=== PATIENT | female | born 1980 | race American Indian/Alaskan Native ===

== ENCOUNTER 2018-03-31 00:55 | Emergency (ER) | payer OTHER ==
[2018-03-31 01:42] LABS: Basophils # (Auto) 0.1 K/mm3 (0.0-0.1); Basophils % (Auto) 0.9 % (0.0-1.8); Eosinophils # (Auto) 0.2 K/mm3 (0.0-0.4); Eosinophils % (Auto) 1.7 % (0.0-4.3); Hematocrit 39.9 % (30.3-42.9); Hemoglobin 13.1 gm/dl (10.1-14.3); Lymphocytes # (Auto) 3.3 K/mm3 (1.2-5.4); Lymphocytes % (Auto) 37.3 % (13.4-35.0); Mean Corpuscular HGB Conc 33 % (30-34); Mean Corpuscular Volume 93 fl (79-97); Monocytes # (Auto) 0.5 K/mm3 (0.0-0.8); Monocytes % (Auto) 5.6 % (0.0-7.3); Platelet Count 339 K/mm3 (140-440); Red Blood Count 4.29 M/mm3 (3.65-5.03); Red Cell Distribution Width 14.3 % (13.2-15.2)
[2018-03-31 02:04] LABS: BUN/Creatinine Ratio 13; Blood Urea Nitrogen 9 mg/dL (7-17); Calcium 8.6 mg/dL (8.4-10.2); Hemolysis Index 9
--- NOTE | 2018-03-31 03:02 | XRay Report ---
FINAL REPORT PROCEDURE: XR CHEST ROUTINE 2V TECHNIQUE: PA and lateral chest radiographs were obtained. CPT 07576 HISTORY: CP/SOB COMPARISON: No prior studies are available for comparison. FINDINGS: Heart: Normal. Mediastinum/Vessels: Normal. Lungs/Pleural space: Normal. Bony thorax: No acute osseous abnormality. Other: IMPRESSION: Normal examination.
[2018-03-31] MEDS ORDERED: ALUM-MAG HYDROX-SIMETH 200-200-20MG/5ML PO ONE (04:17)
[2018-03-31] MEDS ORDERED: TORADOL IM ONE (04:17)
[2018-03-31] MEDS ORDERED: CARAFATE PO ONE (04:17)
[2018-03-31] MEDS ORDERED: PEPCID PO ONE (04:17)
[2018-03-31 04:22] LABS: INR 0.93 (0.87-1.13)
--- NOTE | 2018-03-31 05:37 | Emergency Department Report ---
ED Chest Pain HPI - General Chief Complaint: Chest Pain Stated Complaint: CHEST/ABD PAIN Time Seen by Provider: 03/31/18 04:06 Source: patient Mode of arrival: Ambulatory Limitations: No Limitations - History of Present Illness Initial Comments: This is a 37-year-old female. The patient is not known to this provider previously. She has no current primary care doctor, and denies chronic medical conditions. She reports that she is not , and denies oral contraceptive use. The patient presents to the emergency room with multiple complaints. Her first complaint is chest wall pain. The pain is present intermittently for the past 2 months. It does not radiate to the back, arms or neck. It occasionally involves her shoulders. It has been intermittent for 2 months. The episode that she is experiencing today has been intermittent for the past 36 hours. There is no shortness of breath, vomiting, diaphoresis. There is no posterior leg pain, and no DVT, pulmonary embolus risk factors. She did complain of subjective lower extremity swelling, present for months, neither new, worsening or different. She has a secondary complaints of abdominal pain. Abdominal pain is crampy and in the lower quadrants, present for 4 months. It feels like cramping in nature, and "gas pressure." She denies dysuria, vomiting, reports her last bowel movement was a few days ago, and denies vaginal discharge and feminine discharge. She has no family history of DVT or pulmonary embolus that she is aware of. There is no family history of cardiac disease that she is aware of. MD Complaint: chest pain, other -: Gradual, month(s) Pain Location: other (as per history of present illness) Pain Radiation: other (occasionally to shoulders) Severity scale (0 -10): 5 Quality: aching Consistency: intermittent Improves With: other Worsens With: other Context: other Aspirin use within the Past 7 Days: (0) No - Related Data Previous Rx's Medication Instructions Recorded Last Taken Type Acetaminophen [Tylenol Arthritis] 650 mg PO Q6HR PRN #30 tablet.er 03/31/18 Unknown Rx Ibuprofen [Motrin] 600 mg PO Q8H PRN #30 tablet 03/31/18 Unknown Rx Allergies Allergy/AdvReac Type Severity Reaction Status Date / Time No Known Allergies Allergy Unverified 03/31/18 01:03 Heart Score - HEART Score History: Slightly suspicious EKG: Non-specific Age: < 45 Risk factors: No known risk factors Troponin: < normal limit HEART Score: 1 - Critical Actions Critical Actions: 0-3 pts:0.9-1.7%risk of adverse cardiac event.Candidate for discharge ED Review of Systems ROS: Stated complaint: CHEST/ABD PAIN Other details as noted in HPI Constitutional: denies: fever, malaise Eyes: denies: vision change ENT: denies: epistaxis Respiratory: denies: cough Cardiovascular: chest pain Gastrointestinal: abdominal pain, constipation. denies: vomiting Genitourinary: denies: dysuria Musculoskeletal: other (subjective lower extremity swelling). denies: back pain, arthralgia, myalgia Skin: denies: lesions Neurological: weakness. denies: headache Psychiatric: as per HPI, anxiety ED Past Medical Hx - Past Medical History Previous Medical History?: No - Surgical History Past Surgical History?: No - Social History Smoking Status: Former Smoker Substance Use Type: None - Medications Home Medications: Home Medications Medication Instructions Recorded Confirmed Last Taken Type Acetaminophen [Tylenol Arthritis] 650 mg PO Q6HR PRN #30 tablet.er 03/31/18 Unknown Rx Ibuprofen [Motrin] 600 mg PO Q8H PRN #30 tablet 03/31/18 Unknown Rx ED Physical Exam - General Limitations: No Limitations General appearance: alert, in no apparent distress, obese - Head Head exam: Present: atraumatic, normocephalic - Eye Eye exam: Present: normal appearance, EOMI. Absent: nystagmus - ENT ENT exam: Present: normal exam, normal orophraynx, mucous membranes moist, normal external ear exam - Neck Neck exam: Present: normal inspection, full ROM. Absent: tenderness, meningismus - Respiratory Respiratory exam: Present: normal lung sounds bilaterally, chest wall tenderness. Absent: respiratory distress, wheezes, rales, rhonchi, stridor - Cardiovascular Cardiovascular Exam: Present: regular rate, normal rhythm, normal heart sounds. Absent: bradycardia, tachycardia, irregular rhythm, systolic murmur, diastolic murmur, rubs, gallop - GI/Abdominal GI/Abdominal exam: Present: soft. Absent: distended, tenderness, guarding, rebound, rigid, pulsatile mass - Extremities Exam Extremities exam: Present: normal inspection, full ROM, other (2+ pulses noted in the bilateral upper, lower extremities. Compartments soft. No long bony tenderness. The pelvis is stable.). Absent: pedal edema, joint swelling, calf tenderness - Back Exam Back exam: Present: normal inspection, full ROM. Absent: tenderness, CVA tenderness (R), paraspinal tenderness, vertebral tenderness - Neurological Exam Neurological exam: Present: alert, oriented X3, CN II-XII intact, normal gait, other (Extraocular movements intact. Tongue midline. No facial droop. Facial sensation intact to light touch in the V1, V2, V3 distribution bilaterally. 5 and 5 strength in 4 extremities.. Sensation is intact to light touch in 4 extremities.). Absent: motor sensory deficit - Psychiatric Psychiatric exam: Present: normal affect, normal mood - Skin Skin exam: Present: warm, dry, intact, normal color. Absent: rash ED Course Vital Signs 03/31/18 03/31/18 03/31/18 01:00 04:05 04:31 Temperature 97.9 F 98.3 F Pulse Rate 80 67 68 Respiratory 16 17 19 Rate Blood Pressure 149/98 118/77 Blood Pressure 118/77 [Left] O2 Sat by Pulse 98 100 96 Oximetry 03/31/18 03/31/18 03/31/18 05:00 05:31 06:00 Temperature Pulse Rate 66 71 71 Respiratory 11 L 18 19 Rate Blood Pressure 124/71 123/77 109/68 Blood Pressure [Left] O2 Sat by Pulse 98 99 99 Oximetry - Reevaluation(s) Reevaluation #1: 03/31/18 05:40 Differential diagnosis, including without limited to: Costochondritis, pneumonia, acute coronary syndrome, constipation, urinary tract infection Assessment and plan: 37-year-old female with complaint of abdominal pain and reproducible chest wall pain. Chest wall pain: Reproducible, no pulmonary embolus or DVT risk factors, low risk by well's criteria, low risk by DESTINEE score, low risk by heart score, perc negative, not tachycardic, not hypoxic, EKG unchanged 2, troponin negative 2. We will discharge the patient with pain medication, and she can follow up with an outpatient primary care doctor or technical operator for her chest pain and abnormal EKG. Given that patient is having months of chest wall pain, she is at very low risk for major adverse cardiac event. Abdominal pain: Likely constipation. No abdominal tenderness, rebound or guarding. Urinalysis, urine test pending. This can be treated with supportive care, diet and lifestyle modifications. Based off of History, do not suspect urinary tract infection, and patient stated she is not . Patient endorses consuming one to 2 cups of water per day, at the most. Care was transferred to oncoming physician, Dr. Kingsley Ardon, to follow up on urinalysis and urine test, and if negative, not indicative for acute disease, discharged to follow-up. 04/02/18 19:46 DESTINEE score - Destinee Score Age > 65: (0) No Aspirin use within the Past 7 Days: (0) No 3 or more CAD Risk Factors: (0) No 2 or more Angina events in past 24 hrs: (0) No Known CAD with more than 50% Stenosis: (0) No Elevated Cardiac Markers: (0) No ST Deviation Greater than 0.5mm: (0) No DESTINEE Score: 0 ED Medical Decision Making - Lab Data Result diagrams: 03/31/18 01:22 03/31/18 01:22 Vital Signs 03/31/18 03/31/18 01:00 04:05 Temperature 97.9 F 98.3 F Pulse Rate 80 67 Respiratory 16 17 Rate Blood Pressure 149/98 Blood Pressure 118/77 [Left] O2 Sat by Pulse 98 100 Oximetry Lab Results 03/31/18 03/31/18 03/31/18 Range/Units 01:22 01:22 03:30 WBC 8.8 (4.5-11.0) K/mm3 RBC 4.29 (3.65-5.03) M/mm3 Hgb 13.1 (10.1-14.3) gm/dl Hct 39.9 (30.3-42.9) % MCV 93 (79-97) fl MCH 30 (28-32) pg MCHC 33 (30-34) % RDW 14.3 (13.2-15.2) % Plt Count 339 (140-440) K/mm3 Lymph % (Auto) 37.3 H (13.4-35.0) % [place] % (Auto) 5.6 (0.0-7.3) % Eos % (Auto) 1.7 (0.0-4.3) % Baso % (Auto) 0.9 (0.0-1.8) % Lymph # 3.3 (1.2-5.4) K/mm3 [place] # 0.5 (0.0-0.8) K/mm3 Eos # 0.2 (0.0-0.4) K/mm3 Baso # 0.1 (0.0-0.1) K/mm3 Seg Neutrophils % 54.5 (40.0-70.0) % Seg Neutrophils # 4.8 (1.8-7.7) K/mm3 PT 12.9 (12.2-14.9) Sec. INR 0.93 (0.87-1.13) Sodium 137 (137-145) mmol/L Potassium 4.0 (3.6-5.0) mmol/L Chloride 103.4 (98-107) mmol/L Carbon Dioxide 23 (22-30) mmol/L Anion Gap 15 mmol/L BUN 9 (7-17) mg/dL Creatinine 0.7 (0.7-1.2) mg/dL Estimated GFR > 60 ml/min BUN/Creatinine Ratio 13 % Glucose 100 (65-100) mg/dL Calcium 8.6 (8.4-10.2) mg/dL Troponin T < 0.010 (0.00-0.029) ng/mL Lipase (13-60) units/L 03/31/18 Range/Units 03:51 WBC (4.5-11.0) K/mm3 RBC (3.65-5.03) M/mm3 Hgb (10.1-14.3) gm/dl Hct (30.3-42.9) % MCV (79-97) fl MCH (28-32) pg MCHC (30-34) % RDW (13.2-15.2) % Plt Count (140-440) K/mm3 Lymph % (Auto) (13.4-35.0) % [place] % (Auto) (0.0-7.3) % Eos % (Auto) (0.0-4.3) % Baso % (Auto) (0.0-1.8) % Lymph # (1.2-5.4) K/mm3 [place] # (0.0-0.8) K/mm3 Eos # (0.0-0.4) K/mm3 Baso # (0.0-0.1) K/mm3 Seg Neutrophils % (40.0-70.0) % Seg Neutrophils # (1.8-7.7) K/mm3 PT (12.2-14.9) Sec. INR (0.87-1.13) Sodium (137-145) mmol/L Potassium (3.6-5.0) mmol/L Chloride (98-107) mmol/L Carbon Dioxide (22-30) mmol/L Anion Gap mmol/L BUN (7-17) mg/dL Creatinine (0.7-1.2) mg/dL Estimated GFR ml/min BUN/Creatinine Ratio % Glucose (65-100) mg/dL Calcium (8.4-10.2) mg/dL Troponin T < 0.010 (0.00-0.029) ng/mL Lipase 31 (13-60) units/L - EKG Data -: EKG Interpreted by Me EKG shows normal: sinus rhythm Rate: normal - EKG Data When compared to previous EKG there are: previous EKG unavailable 03/31/18 05:39 EKG #1 demonstrates sinus, 77 beats per minute, normal axis, normal intervals, poor R-wave progression, low voltage, abnormal EKG, not consistent with ST elevation myocardial infarction, EKG #2 appears to be unchanged. - Radiology Data Radiology results: report reviewed, image reviewed X-ray of the chest is negative for acute disease. Critical care attestation.: If time is entered above; I have spent that time in minutes in the direct care of this critically ill patient, excluding procedure time. ED Disposition Clinical Impression: Chest wall pain, Lower abdominal pain Disposition: - TO HOME OR SELFCARE Is pt being admited?: No Does the pt Need Aspirin: No Condition: Stable Instructions: Chest Pain (ED) Additional Instructions: Take the medications as needed/directed. Follow-up with the primary care doctor or technical operator within the next 10-14 days. Drink 6-8 cups of water per day, and eat plenty of fruits, fibers, vegetables. Return to the emergency room right away with new, worsened, different symptoms. Prescriptions: Acetaminophen [Tylenol Arthritis] 650 mg PO Q6HR PRN #30 tablet.er PRN Reason: Pain Ibuprofen [Motrin] 600 mg PO Q8H PRN #30 tablet PRN Reason: Pain Referrals: [facility] [Provider Group] - 3-5 Days [facility] [Provider Group] - 3-5 Days [facility] [Provider Group] - 3-5 Days
[2018-03-31 06:20] VITALS: BP 109/68
[2018-03-31 06:46] LABS: Bacteria,Urine 1+ /HPF (Negative); Bilirubin,Urine NEG (Negative); Blood,Urine LG (Negative); Color,Urine Straw (Yellow); HCG Qualitative,Urine Negative (Negative); Mucus,Urine FEW /HPF; Protein,Urine <15 mg/dL mg/dL (Negative); WBC,Urine < 1.0 /HPF (0.0-6.0)
== END 2018-03-31 07:29 | disposition home or self-care (01) ==
LOC: ED 00:55
DX: R07.89 Other chest pain (principal); R10.30 Lower abdominal pain, unspecified; Z87.891 Personal history of nicotine dependence
CPT/HCPCS: 36415; 71046; 80048; 81001; 81025; 83690; 84484; 85025; 85610; 93005; 93010; 96372; 99284; J1885